=== PATIENT | male | born 1980 | race Caucasian/White ===

== ENCOUNTER 2023-03-01 22:46 | Observation (INO) ==
[2023-03-02] MEDS ORDERED: ONDANSETRON INJ 2 MG/ML 2 ML VIAL IV STA (00:21)
[2023-03-02] MEDS ORDERED: SODIUM CHLORIDE 0.9% 1000ML 1,000 ML IV SCH (00:30)
[2023-03-02] MEDS: MoRPHine SULFATE 4 MG/ML 1 ML CARP\\VIAL IV PRN ×3 (00:30→04:02)
[2023-03-02 00:36] LABS: Basophils # (auto) 0.06 K/uL (0-0.2); Basophils % (auto) 0.3 %; Eosinophils # (auto) 0.02 K/uL (0-0.50); Eosinophils % (auto) 0.1 %; Hematocrit (blood only) 43.8 % (42.0-52.0); Hemoglobin 15.1 g/dl (14.0-18.0); Immature Granulocytes # (auto) 0.07 K/uL (0.01-0.20); Immature Granulocytes % (auto) 0.4 %; Lymphocytes # (auto) 2.42 K/uL (1.2-3.4); Lymphocytes % (auto) 13.1 %; Mean Corpuscular Hemoglobin 29.5 pg (25.0-34.0); Mean Corpuscular Hgb Conc 34.5 g/dL (32.0-36.0); Mean Corpuscular Volume 85.7 fL (80.0-100.0); Mean Platelet Volume 8.9 fL (9.4-12.4); Monocytes # (auto) 1.16 K/uL (0.11-0.59); Monocytes % (auto) 6.3 %; Neutrophils # (auto) 14.74 K/uL (1.40-6.50); Neutrophils % (auto) 79.8 %; Platelet Count 332 K/uL (130-400); RDW Coefficient of Variation 12.5 % (11.5-14.5); Red Blood Count 5.11 M/uL (4.70-6.10); White Blood Count 18.47 K/ul (4.8-10.8)
[2023-03-02 01:10] LABS: Albumin Level 4.5 gm/dl (3.4-5.0); Bilirubin,Total 0.7 mg/dl (0.2-1.0); Calcium 9.3 mg/dl (8.6-10.3); Potassium 3.8 mmol/L (3.5-5.1)
[2023-03-02 01:16] LABS: Albumin Globulin Ratio 1.5 (0.9-2); Creatinine Clr Calc Pharmacy 88.2 ml/min; Est GFR (African American) 107.9 ml/min; Est GFR (Non-African American) 93.1 ml/min; Total Protein 7.5 gm/dl (6.0-8.3)
[2023-03-02] MEDS ORDERED: OPTIRAY 320 100ml IV ONE (01:47)
[2023-03-02] MEDS ORDERED: cefOXitin 2,000 MG/60 ML BAG IV STA (03:02)
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
[2023-03-02] MEDS ORDERED: ePHEDrine sulfate 50 MG/ML AMP IV PRN (04:39)
[2023-03-02] MEDS ORDERED: ONDANSETRON INJ 2 MG/ML 2 ML VIAL IV PRN ×2 (04:39→07:32)
[2023-03-02] MEDS ORDERED: ATROPINE SULFATE 0.1 MG/ML 10ML SYR IV PRN (04:39)
[2023-03-02] MEDS ORDERED: fentaNYL citrate PF 100 MCG/2 ML VIAL IV PRN (04:39)
--- NOTE | 2023-03-02 04:39 | Anesthesiology Consultation ---
Date of Service March 02, 2023 Assessment & Plan Chart Review Chart Review: Acceptable Risk for Surgery and Patient NOT seen in Pre Admission Testing Consults Requested none History Height/Weight Height: 5 ft 6.14 in Weight: 68.3 kg Medications Home Medications Medication Instructions Recorded Confirmed Last Taken No Known Home Medications 03/01/23 03/01/23 Unknown Active Medications Generic Name Dose Route Start Last Admin Trade Name Freq PRN Reason Stop Dose Admin Morphine Sulfate 4 mg 03/02/23 00:21 03/02/23 04:02 Morphine Sulfate 4 Mg/Ml 1 Ml Carp\Vial IV 03/16/23 00:20 4 mg Q30M PRN Administration Pain Social History Smoking Status: Never smoker Physical Exam Vital Signs Last Vital Signs Temp 98.2 F 03/01/23 22:52 Pulse 71 03/02/23 04:00 Resp 20 03/02/23 04:00 BP 134/77 03/02/23 04:00 Pulse Ox 96 03/02/23 04:00 O2 Del Method Room Air 03/02/23 04:00 Testing Laboratory Results 03/01/23 23:25 03/01/23 23:25
[2023-03-02] MEDS ORDERED: ROCURONIUM BROMIDE 10 MG/ML 5 ML VIAL IV ONE (04:52)
[2023-03-02] MEDS ORDERED: LIDOCAINE 2% 2 ML VIAL/AMP(20MG/ML) INFIL ONE (04:52)
[2023-03-02] MEDS ORDERED: fentaNYL citrate PF 100 MCG/2 ML VIAL ONE (04:52)
[2023-03-02] MEDS ORDERED: PROPOFOL IV EMULSION 10 MG/ML 20 ML VIAL IV ONE (04:52)
[2023-03-02] MEDS ORDERED: ONDANSETRON INJ 2 MG/ML 2 ML VIAL ONE (04:52)
[2023-03-02] MEDS ORDERED: MIDAZOLAM HCL 1 MG/ML 2ML VIAL ONE (04:52)
[2023-03-02] MEDS ORDERED: DEXAMETHASONE SOD INJ 4 MG/ML VIAL ONE (04:52)
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
[2023-03-02] MEDS ORDERED: BUPIVACAINE/EPINEPHRINE 0.5% MPF 1:200,000 30 ML VIAL ONE (05:14)
[2023-03-02] MEDS ORDERED: SUGAMMADEX SODIUM 200 MG/2 ML VIAL IV ONE (06:12)
--- NOTE | 2023-03-02 06:34 | Post Operative Brief Note ---
Immediate Post Op Note v1 Date of Surgery March 02, 2023 Pre & Post Diagnosis Operation Date: 03/02/23 05:30 Pre-Op Diagnosis: Acute appendicitis with localized peritonitis without abscess Post-Op Diagnosis: Acute appendicitis with localized peritonitis without abscess I identified the patient and participated in the time-out.: Yes Procedure Operation Date: 03/02/23 05:30 Actual Procedures p Laparoscopic Appendectomy(Not Applicable) - Tevin Augustine MD Surgeon Tevin Augustine MD Financial Dealers none Estimated Blood Loss 5 Findings Consistent with Post-Op Diagnosis
--- NOTE | 2023-03-02 06:35 | Operative Report ---
Post Operative Report Pre & Post Diagnosis Operation Date: 03/02/23 05:30 Pre-Op Diagnosis: Acute appendicitis with localized peritonitis without abscess Post-Op Diagnosis: Acute appendicitis with localized peritonitis without abscess I identified the patient and participated in the time-out.: Yes Procedure Operation Date: 03/02/23 05:30 Actual Procedures p Laparoscopic Appendectomy(Not Applicable) - Tevin Augustine MD Surgeon Tevin Augustine MD Motion Picture Set Grip none Estimated Blood Loss 5 Findings Consistent with Post-Op Diagnosis Acute appendicitis Specimens Appendix Drains None Anesthesia Type General Complications No immediate complications Description of Procedure The patient was taken to the operating room, and placed supine on the operating table. A timeout was performed, perioperative antibiotics were administered, SCD boots were placed. After adequate anesthesia and analgesia was obtained, the abdomen was prepped and draped in the normal sterile fashion. A 1 cm incision was made in the supraumbilical region and carried down to the level of the fascia. A trach hook was used to grasp the fascia and elevated and a varies needle was used to enter the abdominal cavity. The abdomen was insufflated to a pressure of 15 mmHg, and a 5 mm trocar was placed in this location. A 5 mm 30 degree laparoscope was placed into the abdominal cavity, and the abdomen was surveyed. The patient was placed in Trendelenburg and slightly to the left. One 5 mm trocar was placed in the right upper quadrant, and one 12 mm trocar was placed in the left lower quadrant under direct visualization. The right colon was identified and traced down to the cecum. The appendix was identified and elevated anteriorly and medially. A window was created at the base of the appendix with a [place] dissector. The Endo MORAIMA stapler was used to transect the appendix at its base through noninflamed tissue, and subsequently the mesoappendix. The appendix was placed in an Endo Catch bag, and removed via the left lower quadrant port site. Attention was turned to hemostasis, which was excellent. The abdomen was copiously irrigated and suctioned free, and again hemostasis was found to be excellent. All trochars removed under direct visualization. The abdomen was desufflated. The fascia in the 12 mm port site was closed with a 0 Vicryl suture. The skin was closed with a running 4-0 Monocryl subcuticular stitch. Dermabond was applied. The patient tolerated the procedure without complication, and was transferred in stable condition to the PACU. All instrument, needle, and sponge counts were correct at the end of the case. I attest to the content of the Intraoperative Record and any orders documented therein. Any exceptions are noted below.
[2023-03-02] MEDS ORDERED: oxyCODONE/ACETAMINOPHEN 5mg/325mg TAB PO PRN (07:32)
[2023-03-02] MEDS ORDERED: diphenhydrAMINE Capsule 25 MG CAP PO PRN (07:32)
[2023-03-02] MEDS ORDERED: KETOROLAC 30 MG/ML VIAL IV PRN (07:32)
[2023-03-02] MEDS ORDERED: PROMETHAZINE HCL 12.5 MG in SODIUM CHLORIDE 0.9% 50 ML IV PRN (07:32)
[2023-03-02] MEDS ORDERED: MoRPHine SULFATE 2 MG/ML CARP IV PRN (07:32)
--- NOTE | 2023-03-02 07:49 | Anesthesiology Progress Note ---
Date of Service March 02, 2023 Anesthesia Post Procedure Vital Signs Vital Signs: Temp Pulse Pulse Resp BP BP Pulse Ox 03/02/23 07:48 76 16 114/68 94 03/02/23 07:20 98.8 F 85 18 121/74 98 03/02/23 07:10 98.8 F 80 20 140/78 100 03/02/23 07:00 80 18 141/80 H 97 03/02/23 06:50 94 H 19 120/73 98 03/02/23 06:50 94 H 17 120/73 99 03/02/23 06:48 101 H 21 140/80 99 03/02/23 04:58 91 H 16 119/73 95 03/02/23 04:00 71 20 134/77 96 03/02/23 03:22 64 03/02/23 02:30 61 16 118/74 97 03/02/23 02:00 61 19 119/73 96 03/02/23 01:30 65 15 112/69 97 03/02/23 01:00 65 21 128/77 97 03/02/23 00:30 69 17 115/85 97 03/02/23 00:00 67 19 125/76 95 03/01/23 23:30 74 18 122/71 97 03/01/23 23:17 71 03/01/23 23:16 72 13 127/79 96 03/01/23 22:52 98.2 F 79 18 128/81 98 O2 Del Method O2 Flow Rate 03/02/23 07:48 Room Air 03/02/23 07:20 Oxymask 2 03/02/23 07:10 Oxymask 4 03/02/23 07:00 Oxymask 03/02/23 06:50 Oxymask 8 03/02/23 06:50 Oxymask 8 03/02/23 06:48 Oxymask 8 03/02/23 04:58 Room Air 03/02/23 04:00 Room Air 03/02/23 03:22 03/02/23 02:30 Room Air 03/02/23 02:00 Room Air 03/02/23 01:30 Room Air 03/02/23 01:00 Room Air 03/02/23 00:30 Room Air 03/02/23 00:00 Room Air 03/01/23 23:30 Room Air 03/01/23 23:17 03/01/23 23:16 Room Air 03/01/23 22:52 Room Air Pain Intensity Right Abdomen: Pain Intensity: 10 Transfer of Care Handoff Completed per policy Notes Mental Status: alert / awake / arousable and participated in evaluation Patient Amnestic to Procedure: Yes Nausea / Vomiting: adequately controlled Pain: adequately controlled Airway Patency, RR, SpO2: stable & adequate BP & HR: stable & adequate Hydration State: stable & adequate Anesthetic Complications: no major complications apparent and Pt Satisfied with anesthetic care
--- NOTE | 2023-03-02 08:30 | Electrocardiogram Report ---
Test Reason : Blood Pressure : / mmHG Vent. Rate : 069 BPM Atrial Rate : 069 BPM P-R Int : 152 ms QRS Dur : 088 ms QT Int : 390 ms P-R-T Axes : 030 030 044 degrees QTc Int : 417 ms Normal sinus rhythm Normal ECG No previous ECGs available Confirmed by Gonzalo Gallardo ([id number] on 03/02/2023 8:30:01 AM Referred By: REFERRED SELF Confirmed By:Gonzalo Gallardo
[2023-03-02 11:24] LABS: Appearance Urine Clear (Clear); Bilirubin Urine Negative (Negative); Blood Urine Negative (Negative); Color Urine Yellow; Glucose Urine UA Negative (Negative); Ketones Urine Negative (Negative); Leukocyte Esterase Urine Negative (Negative); Nitrite Urine Negative (Negative); Protein Urine Negative (Negative); Specific Gravity Urine 1.015 (1.000-1.030); Urobilinogen Urine Negative (Negative)
[2023-03-03] MEDS ORDERED: ENOXAPARIN INJ 40 MG/0.4 ML SYR SQ SCH (08:00)
== END 2023-03-02 18:30 | disposition home or self-care (01) ==
LOC: ED 22:46 → OR 03-02 05:22 → 3N 03-02 05:22